=== PATIENT | male | born 1965 | race Caucasian/White ===

== ENCOUNTER 2023-10-03 06:22 | Day surgery (SDC) | payer OTHER ==
[~2023-10-03] VITALS: Ht 167.6 cm; Wt 57.6 kg
[2023-10-03] MEDS ORDERED: SIMETHICONE 40 MG/0.6 ML ML ONE (07:08)
[2023-10-03] MEDS ORDERED: MEPERIDINE 100 MG INJ. 100 MG/ML VIAL ONE (07:09)
[2023-10-03] MEDS ORDERED: MIDAZOLAM HCL 5 MG/5 ML VIAL ONE (07:09)
[2023-10-03] MEDS ORDERED: fentaNYL CITRATE/PF 100 MCG/2 ML AMP ONE (08:20)
[2023-10-03 09:48] VITALS: O2SAT 99
[2023-10-03 10:34] VITALS: BP_SYST 117; PULSE 67; RESP 19; TEMP 98.9
== END 2023-10-03 09:22 | disposition home or self-care (01) ==
LOC: SDS 06:22 → SMU 06:22 → EDSEX 08:00 → SDS 09:22
PROVIDERS: ATTEND Internal Medicine
DX: Z12.11 Encounter for screening for malignant neoplasm of colon (principal); D12.2 Benign neoplasm of ascending colon; K64.8 Other hemorrhoids; Z86.010 Personal history of colon polyps; Z79.899 Other long term (current) drug therapy
CPT/HCPCS: 45380; 45385; 99152; 88305; G0378; J2250; J3010; J2175